=== PATIENT | male | born 1995 | race Caucasian/White ===

== ENCOUNTER → 2018-12-16 17:17 | Emergency (ER) | payer BC ==
[2018-12-16 17:24] VITALS: BP 149/94
--- NOTE | 2018-12-16 17:50 | ED ---
Head Injury - HPI Summary HPI Summary: 23 year old male presents with head injury 7 days ago. He states he was drinking he fell off a fence 4 feet onto his head. He states he passed out for a couple seconds. He states he has history of this 3 ago. He denies any nausea or vomiting. Admits occasional blurry vision. Headache is not been severe. Able to ambulate without difficulty. States occasional difficulties concentrating and remembering things. screens have been bothering him. Denies any current photophobia. Headache is currently a 2 out of 10. He states he gradually getting better. Has not followed with primary as such. Has no medical conditions. No neck pain. No other injury. - History Of Current Complaint Chief Complaint: EDHeadInjury Stated Complaint: HEADACHE/HEAD INJURY PER PT Time Seen by Provider: 12/16/18 17:29 Pain Intensity: 4 - Allergies/Home Medications Allergies/Adverse Reactions: Allergies Allergy/AdvReac Type Severity Reaction Status Date / Time MS Amoxicillin [Amoxicillin] Allergy Hives Unverified 01/13/14 15:25 PMH/Surg Hx/FS Hx/Imm Hx Endocrine/Hematology History: Denies: Hx Anticoagulant Therapy Respiratory History: Denies: Hx Asthma Infectious Disease History: No Infectious Disease History: Denies: Traveled Outside the [place] in Last 30 Days - Family History Known Family History: Positive: Non-Contributory - Social History Alcohol Use: Occasionally Substance Use Type: Reports: None Smoking Status (MU): Never Smoked Tobacco Review of Systems Negative: Fever Negative: Chest Pain Negative: Shortness Of Breath Negative: Vomiting, Nausea Positive: Headache All Other Systems Reviewed And Are Negative: Yes Physical Exam Triage Information Reviewed: Yes Vital Signs On Initial Exam: Initial Vitals Temp Pulse Resp BP Pulse Ox 98.6 F 61 18 149/94 98 12/16/18 17:20 12/16/18 17:20 12/16/18 17:20 12/16/18 17:20 12/16/18 17:20 Vital Signs Reviewed: Yes Appearance: Positive: Well-Appearing Skin: Positive: Warm, Dry Head/Face: Positive: Normal Head/Face Inspection Eyes: Positive: Normal, Conjunctiva Clear ENT: Positive: Pharynx normal Respiratory/Lung Sounds: Positive: Clear to Auscultation, Breath Sounds Present Cardiovascular: Positive: Normal, RRR Abdomen Description: Positive: Nontender, Soft Bowel Sounds: Positive: Present Musculoskeletal: Positive: Normal Neurological: Positive: Sensory/Motor Intact, Alert, Oriented to Person Place, Time, CN Intact II-III, Finger to Nose Psychiatric: Positive: Normal Diagnostics - Vital Signs Vital Signs Temp Pulse Resp BP Pulse Ox 12/16/18 17:20 98.6 F 61 18 149/94 98 - Laboratory Lab Statement: Any lab studies that have been ordered have been reviewed, and results considered in the medical decision making process. Head Injury Course/Dx Course Of Treatment: 23 year old male presents with head injury 7 days ago. He states he was drinking he fell off a fence 4 feet onto his head. He states he passed out for a couple seconds. He states he has history of this 3 ago. He denies any nausea or vomiting. Admits occasional blurry vision. Headache is not been severe. Able to ambulate without difficulty. States occasional difficulties concentrating and remembering things. screens have been bothering him. Denies any current photophobia. Headache is currently a 2 out of 10. He states he gradually getting better. Has not followed with primary as such. Has no medical conditions. No neck pain. No other injury. On exam has a normal neuro exam. according to [place] [facility] rules does not need head imaging. gave concussion precautions. Told to follow up with primary. Patient understands agrees with plan. - Diagnoses Differential Diagnosis/HQI/PQRI: Concussion With LOC, Concussion Without LOC, Contusion, Intracranial Bleed Provider Diagnoses: Concussion Discharge - Sign-Out/Discharge Documenting (check all that apply): Patient Departure Patient Received Moderate/Deep Sedation with Procedure: No - Discharge Plan Condition: Good Disposition: HOME Patient Education Materials: Concussion (ED) Referrals: Jonnathan Vasquez MD [Primary Care Provider] - Additional Instructions: Take Tylenol or ibuprofen for headache every 6 hours Modify activities as tolerated Follow up with primary within 5 days Return to ED if develop vomiting, severe headache or any new or worsening symptoms - Billing Disposition and Condition Condition: GOOD Disposition: Home
== END | disposition home or self-care (01) ==
LOC: ED 17:17
DX: S06.0X9A Concussion with loss of consciousness of unspecified duration, initial encounter (principal); W17.89XA Other fall from one level to another, initial encounter; Y92.9 Unspecified place or not applicable; Z88.1 Allergy status to other antibiotic agents
CPT/HCPCS: 99281